=== PATIENT | female | born 1935 | race Caucasian/White ===

== ENCOUNTER 2022-04-06 15:26 | Emergency (ER) | payer MEDICARE, OTHER ==
[~2022-04-06] VITALS: Ht 157.5 cm; Wt 69.2 kg
[~2022-04-06 15:26] MED LIST: NO HOME MEDS
[2022-04-06 16:07] VITALS: BP 196/102
[2022-04-06] MEDS ORDERED: erythromycin ophthalmic ointment 1gm tube EACHEYE ONE (17:25)
[2022-04-06] MEDS ORDERED: ERYT1OIN6 EACHEYE (17:25)
== END 2022-04-06 17:40 | disposition home or self-care (01) ==
LOC: ER 15:27
DX: H10.9 Unspecified conjunctivitis (principal); H57.13 Ocular pain, bilateral; Z79.2 Long term (current) use of antibiotics
CPT/HCPCS: 99283